=== PATIENT | male | born 1935 | race Two or more races ===

== ENCOUNTER 2019-09-07 09:24 | Emergency (ER) | payer MEDICARE, MEDICAID ==
[~2019-09-07] VITALS: Ht 167.6 cm; Wt 86.5 kg
[2019-09-07 09:27] VITALS: BP 161/74
--- NOTE | 2019-09-07 09:37 | NUR ---
TASK RN: PT AMBULATORY TO ROOM 2. STATES HE IS ON VACATION FROM ATHENS AND HE FORGOT HIS INSULIN. PT RESTING ON ELVIS. SHAYY. FAMILY AT BEDSIDE. FRANCIS RINCON AT BEDSIDE.
--- NOTE | 2019-09-07 10:08 | NUR ---
Patient given discharge instructions and Rx, they have confirmed that they understand the instructions. Patient ambulatory with steady gait.
== END 2019-09-07 10:10 | disposition home or self-care (01) ==
LOC: ED 09:57
DX: I10 Essential (primary) hypertension (principal); E11.65 Type 2 diabetes mellitus with hyperglycemia; Z76.0 Encounter for issue of repeat prescription; Z95.0 Presence of cardiac pacemaker
CPT/HCPCS: 82962; 99283